=== PATIENT | male | born 1995 | race Caucasian/White ===

== ENCOUNTER 2018-12-01 17:34 | Emergency (ER) | payer MEDICAID ==
[~2018-12-01] VITALS: Ht 170.2 cm; Wt 108.4 kg
[2018-12-01 17:37] VITALS: Ht 170.2 cm; Wt 108.4 kg
[2018-12-01 19:29] LABS: microscopic required? NO
[2018-12-01 19:58] LABS: UA SPECIFIC GRAVITY 1.025 (1.005-1.035); urine erythrocyte NEGATIVE (NEGATIVE)
[2018-12-01 20:37] VITALS: BP 134/84
== END 2018-12-01 20:37 | disposition home or self-care (01) ==
LOC: ED 17:34
DX: N34.2 Other urethritis (principal); R30.0 Dysuria
CPT/HCPCS: 87491; 87591; J0696